=== PATIENT | female | born 1980 | race Caucasian/White ===

== ENCOUNTER 2021-07-17 10:01 | Outpatient (REF) | payer OTHER, SELFPAY ==
[2021-07-17 11:56] LABS: Alanine Aminotransferase 16 U/L (0-31); Albumin Level 4.3 g/dL (3.5-5.0); Alkaline Phosphatase 77 U/L (39-117); Anion Gap 11 (12-20); Aspartate Amino Transferase 15 U/L (5-31); Blood Urea Nitrogen 14 mg/dL (9-16); Calcium 9.4 mg/dL (8.4-10.2); Carbon Dioxide 25 mmol/L (22-29); Chloride 104 mmol/L (96-108); Estimated Glomerular Filt Rate 53; Glucose Random 75 mg/dL (60-115); Potassium 4.4 mmol/L (3.3-5.1); Sodium 136 mmol/L (135-145); Total Protein 6.8 g/dL (6.5-8.0)
== END 2021-07-17 10:02 | disposition home or self-care (01) ==
LOC: HO.HMGCLDS 10:01
PROVIDERS: Visit Provider Emergency Medicine
DX: F64.0 Transsexualism (principal)
CPT/HCPCS: 36415; 80053

== ENCOUNTER 2021-08-02 10:11 | Outpatient (REF) | payer OTHER, SELFPAY ==
[2021-08-07 00:42] LABS: Estradiol Ultra Sensitive 258 pg/mL
== END 2021-08-02 10:12 | disposition home or self-care (01) ==
LOC: HO.HMGCLDS 10:11
PROVIDERS: Visit Provider Emergency Medicine
DX: F60.0 Paranoid personality disorder (principal)
CPT/HCPCS: 36415; 82670

== ENCOUNTER 2021-08-30 10:35 | Outpatient (REF) | payer OTHER, SELFPAY ==
[2021-08-30 14:34] LABS: Alanine Aminotransferase 13 U/L (0-31); Albumin Level 4.6 g/dL (3.5-5.0); Alkaline Phosphatase 79 U/L (39-117); Anion Gap 15 (12-20); Aspartate Amino Transferase 19 U/L (5-31); Bilirubin Total 0.6 mg/dL (0.0-1.0); Blood Urea Nitrogen 12 mg/dL (9-16); Carbon Dioxide 24 mmol/L (22-29); Chloride 99 mmol/L (96-108); Cholesterol 188 mg/dL; Estimated Glomerular Filt Rate 50; Glucose Random 100 mg/dL (60-115); HDL Cholesterol 68 mg/dL; LDL Cholesterol Calculated 103 mg/dl; Potassium 4.8 mmol/L (3.3-5.1); Sodium 133 mmol/L (135-145); Total Protein 7.5 g/dL (6.5-8.0); Triglycerides 87 mg/dL
[2021-09-05 12:51] LABS: Testosterone, Total 111 ng/dL (2-45)
[2021-09-07 21:06] LABS: Estradiol Free 8.37 pg/mL; Estradiol, Ultrasensitive 625 pg/mL
== END 2021-08-30 10:36 | disposition home or self-care (01) ==
LOC: HO.HMGCLDS 10:35
PROVIDERS: Visit Provider Emergency Medicine
DX: F64.0 Transsexualism (principal)
CPT/HCPCS: 36415; 80053; 80061; 82670; 82681; 84403

== ENCOUNTER 2022-06-17 08:34 | Inpatient (IN) | payer OTHER, SELFPAY ==
[2022-06-17 08:37] VITALS: BP 154/87; PULSE 114; RESP 18; TEMP 36.5; O2SAT 99; BMI 19.8
--- NOTE | 2022-06-17 09:09 | ED_ITS ---
HPI - Psych General Chief Complaint: Psychiatric Symptoms Stated Complaint: Crisis Time Seen by Provider: 06/17/22 08:53 Source: patient Mode of arrival: ambulatory History of Present Illness HPI Narrative: 42-year-old [facility]. Per collateral patient's is afraid of patient and dropped her off at the program. Patient reporting her is delusional, and turing her family against her. Patient stating she does not feel safe with her / her son being with her . Patient states does not believe anything patient says, and is pushing her away from all of her family. Patient denies ETOH/drug use, SI or HI. Onset (ago): unknown Related Data Home Medications Medication Instructions Recorded Confirmed No Known Home Meds 06/17/22 06/17/22 Allergies Allergy/AdvReac Type Severity Reaction Status Date / Time No Known Allergies Allergy Verified 06/17/22 08:35 [No Known Allergies*] Review of Systems Review of Systems: Constitutional: No Fever, No Chills, No Fatigue, No Malaise ENT/Mouth: No Ear Pain, No Nasal Congestion, No sore throat Eyes: No Eye Pain, No Swelling, No Redness,No Vision Changes Cardiovascular: No Chest Pain, No SOB Respiratory: No Cough, No Dyspnea Gastrointestinal: No Nausea, No Vomiting, No Abdominal pain Musculoskeletal: No joint pain, No Myalgias, No Joint Swelling Skin: No Skin Lesions, No rash Neuro: No Weakness, No Headache Psych: + Anxiety/Panic, No Depression, No SI/HI/AH/VH, + Social Issues ROS mildly limited due to patient's acute mental status Yes all other systems are reviewed and are negative Constitutional: Constitutional: Reports as per HPI [facility] Past Medical History Attestation statement: The following information was validated with the patient. Social History Social History Smoked in Last 30 Days: Yes Use of substances other than those prescribed or required for medical reasons: No Advance Directives: No Advance Directives Information Provided: No Physical Exam Vital Signs: Vital Signs: Last Vital Signs Temp 97.9 F 06/17/22 11:48 Pulse 72 06/17/22 11:48 Resp 14 06/17/22 11:48 BP 137/74 06/17/22 11:48 Pulse Ox 98 06/17/22 11:48 O2 Del Method 06/17/22 11:48 BMI result Body Mass Index 19.8 Const: General: cooperative and anxious Orientation/consciousness: patient oriented x3 HEENT: Head: Yes normal to inspection and Yes atraumatic Ears: hearing grossly normal bilaterally General nose exam: Normal external nose present Face and sinus: Yes normal facial exam Throat: Yes posterior oropharynx normal Eyes: General: appearance normal, both eyes and all related structures EOM: EOMs intact bilaterally Neck: Neck: Yes normal visual inspection and Yes no meningeal signs Resp: Effort & Inspection: normal respiratory effort and no respiratory d istress Auscultation: clear to auscultation bilaterally, no crackles, no rales, no rhonchi and no wheezes Cardio: Rate: regular rate Heart sounds: S1 normal heart sound present and S2 normal heart sound present GI: Inspection: Yes normal to inspection Palpation (GI): Soft to palpation, nontender, no guarding and not rigid Skin: Rashes: no rashes Wounds: no wounds Neuro: General: patient oriented x3, tone normal, moves all extremities, no meningeal signs and CN's II-XI intact bilaterally Gait exam (Neuro): Normal gait present Extrem: General: Yes normal to inspection Psych: Speech and movement: Pressured speech present Affect: Animated affect present and Anxious affect present Thought process: Perseverating thought process present and Racing thoughts present Thought content: suicidality, no homicidality, Paranoid delusions present, delusions and No Depressive thoughts present Insight: Poor insight present (Psych) Judgement: Poor judgement present (Psych) Course Course Course Narrative: -[id number]-- labs unremarkable. Tox screen positive for THC Physician observation initiated at 11:30AM as patient needs more time to re- evaluated by crisis -1800-- ED care transferred to NATACHA Srivastava pending Crisis eval MDM - Psych MDM Narrative Medical decision making narrative: 42-year-old female presenting to ED from partial program for acute psychosis/ delusions. on exam vital signs stable, NAD, pressured speech, paranoid, obsessive, anxious, accusatory. Concern for acute psychosis. Rule out metabolic and infectious etiologies. Plan: Labs, tox screen, crisis consult Differential Diagnosis Differential diagnosis: Likely acute psychosis, drug-induced psychotic disorder, acute anxiety, substance abuse, mood disorder and schizoaffective disorder Medical Records Attestation: I reviewed the patient's medical records. Lab Data Attestation: I reviewed the patient's lab results. Result diagrams: 06/17/22 09:48 06/17/22 09:48 Labs: Lab Results 06/17/22 06/17/22 06/17/22 Range/Units 09:48 09:48 10:05 WBC 9.3 (4.8-10.8) X10*3/uL RBC 5.18 (4.20-5.50) X10*6/uL Hgb 15.5 (12.0-16.0) g/dl Hct 45.6 (37.0-47.0) % MCV 88.0 (80.0-98.0) fL MCH 29.9 (27.0-33.0) pg MCHC 34.0 (31.0-35.0) g/dl RDW 12.8 (11.0-16.0) % Plt Count 255 (160-400) X10*3/uL MPV 9.8 (9.4-12.3) fL Immature Gran % (Auto) Cancelled Neut % (Auto) Cancelled Lymph % (Auto) Cancelled [place] % (Auto) Cancelled Eos % (Auto) Cancelled Baso % (Auto) Cancelled Lymph # (Auto) Cancelled [place] # (Auto) Cancelled Eos # (Auto) Cancelled Baso # (Auto) Cancelled Abs Immat Gran (auto) Cancelled Absolute Neuts (auto) Cancelled Absolute Nucleated RBC 0.000 (0.0-0.012) X10*3/uL Nucleated RBC % (auto) 0.0 (0.0-0.2) /100WBC Neutrophils % (Manual) 71 (45-73) % Band Neutrophils % 0 L (3-5) % Lymphocytes % (Manual) 23 (20-40) % Monocytes % (Manual) 6 (2-11) % Abs Neuts (Manual) 6.6 (2.0-8.3) X10*3/uL Lymphocytes # (Manual) 2.1 (1.2-4.9) X10*3/uL Monocytes # (Manual) 0.6 (0.1-1.2) X10*3/uL Platelet Estimate NORMAL (NORMAL) Plt Morphology Comment NORMAL RBC Morphology NORMAL Sodium 138 (135-145) mmol/L Potassium 4.3 (3.3-5.1) mmol/L Chloride 103 (96-108) mmol/L Carbon Dioxide 25 (22-29) mmol/L Anion Gap 14 (12-20) BUN 9 (9-16) mg/dL Creatinine 1.13 (0.5-1.4) mg/dL Estim Creat Clear Calc 60.9 Estimated GFR 53 Random Glucose 127 H (60-115) mg/dL Calcium 9.5 (8.4-10.2) mg/dL Total Bilirubin 0.7 (0.0-1.0) mg/dL Direct Bilirubin 0.3 (0.0-0.5) mg/dL AST 20 (5-31) U/L ALT 17 (0-31) U/L Alkaline Phosphatase 73 (39-117) U/L Total Protein 6.8 (6.5-8.0) g/dL Albumin 4.5 (3.5-5.0) g/dL Urine Opiates Screen Not Detected (Not Detect) Urine Fentanyl Screen Not Detected (Not Detect) Ur Barbiturates Screen Not Detected (Not Detect) Ur Phencyclidine Scrn Not Detected (Not Detect) Ur Amphetamines Screen Not Detected (Not Detect) U Benzodiazepines Scrn Not Detected (Not Detect) Urine Cocaine Screen Not Detected (Not Detect) U Marijuana (THC) Screen POSITIVE H (Not Detect) Ethyl Alcohol < 10 mg/dL COVID-19 (RESHMA) (Negative) COVID-19 Clin Com 06/17/22 Range/Units 11:35 WBC (4.8-10.8) X10*3/uL RBC (4.20-5.50) X10*6/uL Hgb (12.0-16.0) g/dl Hct (37.0-47.0) % MCV (80.0-98.0) fL MCH (27.0-33.0) pg MCHC (31.0-35.0) g/dl RDW (11.0-16.0) % Plt Count (160-400) X10*3/uL MPV (9.4-12.3) fL Immature Gran % (Auto) Neut % (Auto) Lymph % (Auto) [place] % (Auto) Eos % (Auto) Baso % (Auto) Lymph # (Auto) [place] # (Auto) Eos # (Auto) Baso # (Auto) Abs Immat Gran (auto) Absolute Neuts (auto) Absolute Nucleated RBC (0.0-0.012) X10*3/uL Nucleated RBC % (auto) (0.0-0.2) /100WBC Neutrophils % (Manual) (45-73) % Band Neutrophils % (3-5) % Lymphocytes % (Manual) (20-40) % Monocytes % (Manual) (2-11) % Abs Neuts (Manual) (2.0-8.3) X10*3/uL Lymphocytes # (Manual) (1.2-4.9) X10*3/uL Monocytes # (Manual) (0.1-1.2) X10*3/uL Platelet Estimate (NORMAL) Plt Morphology Comment RBC Morphology Sodium (135-145) mmol/L Potassium (3.3-5.1) mmol/L Chloride (96-108) mmol/L Carbon Dioxide (22-29) mmol/L Anion Gap (12-20) BUN (9-16) mg/dL Creatinine (0.5-1.4) mg/dL Estim Creat Clear Calc Estimated GFR Random Glucose (60-115) mg/dL Calcium (8.4-10.2) mg/dL Total Bilirubin (0.0-1.0) mg/dL Direct Bilirubin (0.0-0.5) mg/dL AST (5-31) U/L ALT (0-31) U/L Alkaline Phosphatase (39-117) U/L Total Protein (6.5-8.0) g/dL Albumin (3.5-5.0) g/dL Urine Opiates Screen (Not Detect) Urine Fentanyl Screen (Not Detect) Ur Barbiturates Screen (Not Detect) Ur Phencyclidine Scrn (Not Detect) Ur Amphetamines Screen (Not Detect) U Benzodiazepines Scrn (Not Detect) Urine Cocaine Screen (Not Detect) U Marijuana (THC) Screen (Not Detect) Ethyl Alcohol mg/dL COVID-19 (RESHMA) Negative (Negative) COVID-19 Clin Com See Note Discharge Plan Discharge Clinical Impression: Acute psychosis Patient Disposition: Still a Patient Prescriptions: No Action No Known Home Meds Interventions: [place]-Suicide Risk Severity Scale Last Done: 06/17/22 11:06
[2022-06-17 09:40] VITALS: BP 141/67; PULSE 99; RESP 14; TEMP 36.3; O2SAT 98
[2022-06-17 09:53] LABS: Hematocrit 45.6 % (37.0-47.0); Hemoglobin 15.5 g/dl (12.0-16.0); Mean Corpuscular Hemoglobin 29.9 pg (27.0-33.0); Mean Platelet Volume 9.8 fL (9.4-12.3); Platelet Count 255 X10*3/uL (160-400); Red Blood Count 5.18 X10*6/uL (4.20-5.50); Red Cell Distribution Width 12.8 % (11.0-16.0)
[2022-06-17 09:54] LABS: WBC ABN SCTR FOR CBC 1; White Blood Count 9.3 X10*3/uL (4.8-10.8)
--- NOTE | 2022-06-17 10:14 | PC.NURSE ---
Lia called the pt's at this time, the pt does not want staff to communicate any treatment plan or any information with Lia at this time
[2022-06-17 10:24] LABS: Amphetamine Screen Urine Not Detected (Not Detect); Barbiturates, Urine Not Detected (Not Detect); Benzodiazepines Screen Urine Not Detected (Not Detect); Cannabinoid Screen Urine POSITIVE (Not Detect); Cocaine Screen Urine Not Detected (Not Detect); Fentanyl, urine Not Detected (Not Detect); Opiate Screen Urine Not Detected (Not Detect); Phencyclidine Screen Urine Not Detected (Not Detect)
[2022-06-17 10:25] LABS: Alanine Aminotransferase 17 U/L (0-31); Albumin Level 4.5 g/dL (3.5-5.0); Alkaline Phosphatase 73 U/L (39-117); Anion Gap 14 (12-20); Aspartate Amino Transferase 20 U/L (5-31); Bilirubin Total 0.7 mg/dL (0.0-1.0); Blood Urea Nitrogen 9 mg/dL (9-16); Calcium 9.5 mg/dL (8.4-10.2); Carbon Dioxide 25 mmol/L (22-29); Chloride 103 mmol/L (96-108); Creatinine Clr Calc Pharmacy 60.9; Estimated Glomerular Filt Rate 53; Ethanol < 10 mg/dL; Glucose Random 127 mg/dL (60-115); Potassium 4.3 mmol/L (3.3-5.1); Sodium 138 mmol/L (135-145); Total Protein 6.8 g/dL (6.5-8.0)
[2022-06-17 10:39] LABS: Band Neutrophils Percent 0 % (3-5); Lymphocytes Absolute Manual 2.1 X10*3/uL (1.2-4.9); Lymphocytes Percent Manual 23 % (20-40); Monocytes Absolute Manual 0.6 X10*3/uL (0.1-1.2); Monocytes Percent Manual 6 % (2-11); Neutrophils Absolute Manual 6.6 X10*3/uL (2.0-8.3); Neutrophils Percent Manual 71 % (45-73)
[2022-06-17 10:40] LABS: Platelet Estimate NORMAL (NORMAL); Platelet Morphology Comment NORMAL; RBC Morphology NORMAL
[2022-06-17 10:50] LABS: Bilirubin Direct 0.3 mg/dL (0.0-0.5)
[2022-06-17 11:48] VITALS: BP 137/74; PULSE 72; RESP 14; TEMP 36.6; O2SAT 98
[2022-06-17 12:01] LABS: COVID-19 Test Negative (Negative); IDNOW Serial# 16C4AD1C
--- NOTE | 2022-06-17 15:43 | MHC.CARE ---
[facility] unable to send a clinician to assess pt. CARE team will complete evaluation shortly.
[2022-06-17 21:08] VITALS: BP 142/81; PULSE 80; RESP 18; TEMP 36.7
[2022-06-17 22:27] VITALS: BMI 18.6
[2022-06-17] MEDS: Nicotine Polacrilex Lozenge 2 MG LOZENGE BUCCAL (23:16)
--- NOTE | 2022-06-17 23:25 | PC.ADMIT ---
Pt is a 42 years old transgender female who reports he is back to being a male. Pt was assigned male at and transitioned to female in 2016, however this past summer the Pt stopped taking estrogen to transition back. Pt is alert and oriented x3, VSS, Covid negative, tox screen positive for THC. Pt was brought to the hospital by his for increased delusions, agitation, and not eating or sleeping. Speech is pressured with normal tone, mood is elevated. Pt is restless with delusional preoccupation. Pt reports he wants to speak to somebody about his gender and also seek help in applying for disability. Pt has a history of one suicide attempt in 2007. Pt has no outpatient providers at this time. Admission orders obtained.
[2022-06-18] MEDS: Nicotine Polacrilex Lozenge 2 MG LOZENGE BUCCAL ×5 (06:50→18:32)
[2022-06-18 08:00] VITALS: BP 179/94; PULSE 125; RESP 16; TEMP 36.1; O2SAT 98
--- NOTE | 2022-06-18 09:00 | ECG_ITS ---
Test Reason : QTC CHECK Blood Pressure : / mmHG Vent. Rate : 069 BPM Atrial Rate : 069 BPM P-R Int : 110 ms QRS Dur : 080 ms QT Int : 358 ms P-R-T Axes : 064 079 062 degrees QTc Int : 383 ms Sinus rhythm with sinus arrhythmia with short LA Otherwise normal ECG No previous ECGs available Referred By: Lona Freeman Electronically Signed By:GIOVANNY VARMA MD
[2022-06-18 09:56] LABS: Estimated Average Glucose 103 mg/dL; Hemoglobin A1C 148.3786 umol/L; Hemoglobin A1c % 5.2 %
[2022-06-18 10:32] LABS: Cholesterol 156 mg/dL; Free T4 (Free Thyroxine) 0.99 ng/dL (0.71-1.85); HDL Cholesterol 57 mg/dL; LDL Cholesterol Calculated 85 mg/dl; Magnesium 2.1 mg/dL (1.6-2.6); Triglycerides 72 mg/dL
[2022-06-18 10:42] LABS: Vitamin B12 307 pg/mL (200-900)
[2022-06-18] MEDS: Acetaminophen 325 MG TABLET 650 MG PO (14:24)
[2022-06-18 18:00] VITALS: BP 133/86; PULSE 88; RESP 20; TEMP 36.9; O2SAT 96
--- NOTE | 2022-06-18 18:44 | HO.PSYADMNOT ---
HPI Date of Service: 06/18/22 Chief Complaint: Acute Psychosis Sources of Information: patient interviewed, chart reviewed and crisis/core team assessment reviewed HPI Subjective Notes: Conditional Voluntary Healthcare Proxy: No Guardianship: No Medical Problems Affecting Mental Status: No Narrative: 42 yo AMAB, Trans female for six years, with transition back to male this year as he believed his was having an affair. reports increase in lability, agitation, delusions regarding Kalia Cobain, poor appetite and sleep. Met with pt today who is alert, oriented, forthcoming. Reports he feels gaslighted by . She is upset that I am not making money and she wants me to get social security. Pt discussed his transitions and feeling unsafe in the work place as female, so he has continued to transition. Reports being rejected from over 40 positions due to gender. Discussed his concerns and needs which include assist in application for SSDI, referral to [facility], referral to primary care and endocrine MD's so he may have proper treatment. No current interest in attending [facility] or uniting with the community- too old for that . Wanting to leave me alone . Discussed feeling trapped in his relationship. Pt identifies his goals to be happy in my existance and to not be gaslighted. Considering a couples meeting. Pt declined psychopharmacology intervention at this time. Past Psychiatric History: IP: History of admission OP: Denies Medical Evaluation Reviewed: Yes [facility] Medical History (Updated 06/18/22 @ 18:59 by Lona Freeman, CHRIS) Bipolar disorder PTSD (post-traumatic stress disorder) Narrative: Denies Family History: Bipolar Disorder Social History: Born and raised in [place] One sister one brother Estranged from family ~11 years One son age 10 Substance History: cannabis Trauma History: affirms Diagnostics Vital Signs (24Hr): Vital Signs - 24 hr 06/17/22 21:08 06/18/22 08:00 Temperature 98.0 F 96.9 F Pulse Rate 80 125 H Respiratory Rate 18 16 Blood Pressure 142/81 H 179/94 H Pulse Oximetry 98 Oxygen Delivery Method Room Air Room Air BMI result Body Mass Index 18.6 Labs Results: 06/17/22 09:48 06/17/22 09:48 Labs: Laboratory Results - last 48 hr 06/17/22 06/17/22 06/17/22 09:48 09:48 10:05 WBC 9.3 RBC 5.18 Hgb 15.5 Hct 45.6 MCV 88.0 MCH 29.9 MCHC 34.0 RDW 12.8 Plt Count 255 MPV 9.8 Immature Gran % (Auto) Cancelled Neut % (Auto) Cancelled Lymph % (Auto) Cancelled [place] % (Auto) Cancelled Eos % (Auto) Cancelled Baso % (Auto) Cancelled Lymph # (Auto) Cancelled [place] # (Auto) Cancelled Eos # (Auto) Cancelled Baso # (Auto) Cancelled Abs Immat Gran (auto) Cancelled Absolute Neuts (auto) Cancelled Absolute Nucleated RBC 0.000 Nucleated RBC % (auto) 0.0 Neutrophils % (Manual) 71 Band Neutrophils % 0 L Lymphocytes % (Manual) 23 Monocytes % (Manual) 6 Abs Neuts (Manual) 6.6 Lymphocytes # (Manual) 2.1 Monocytes # (Manual) 0.6 Platelet Estimate NORMAL Plt Morphology Comment NORMAL RBC Morphology NORMAL Sodium 138 Potassium 4.3 Chloride 103 Carbon Dioxide 25 Anion Gap 14 BUN 9 Creatinine 1.13 Estim Creat Clear Calc 60.9 Estimated GFR 53 Random Glucose 127 H Estimat Average Glucose Hemoglobin A1c % Calcium 9.5 Magnesium Total Bilirubin 0.7 Direct Bilirubin 0.3 AST 20 ALT 17 Alkaline Phosphatase 73 Total Protein 6.8 Albumin 4.5 Triglycerides Cholesterol LDL Cholesterol, Calc HDL Cholesterol Vitamin B12 Folate TSH Free T4 Urine Opiates Screen Not Detected Urine Fentanyl Screen Not Detected Ur Barbiturates Screen Not Detected Ur Phencyclidine Scrn Not Detected Ur Amphetamines Screen Not Detected U Benzodiazepines Scrn Not Detected Urine Cocaine Screen Not Detected U Marijuana (THC) Screen POSITIVE H Ethyl Alcohol < 10 COVID-19 (RESHMA) COVID-19 Clin Com 06/17/22 06/18/22 06/18/22 11:35 09:27 09:27 WBC RBC Hgb Hct MCV MCH MCHC RDW Plt Count MPV Immature Gran % (Auto) Neut % (Auto) Lymph % (Auto) [place] % (Auto) Eos % (Auto) Baso % (Auto) Lymph # (Auto) [place] # (Auto) Eos # (Auto) Baso # (Auto) Abs Immat Gran (auto) Absolute Neuts (auto) Absolute Nucleated RBC Nucleated RBC % (auto) Neutrophils % (Manual) Band Neutrophils % Lymphocytes % (Manual) Monocytes % (Manual) Abs Neuts (Manual) Lymphocytes # (Manual) Monocytes # (Manual) Platelet Estimate Plt Morphology Comment RBC Morphology Sodium Potassium Chloride Carbon Dioxide Anion Gap BUN Creatinine Estim Creat Clear Calc Estimated GFR Random Glucose Estimat Average Glucose 103 Hemoglobin A1c % 5.2 Calcium Magnesium 2.1 Total Bilirubin Direct Bilirubin AST ALT Alkaline Phosphatase Total Protein Albumin Triglycerides 72 Cholesterol 156 LDL Cholesterol, Calc 85 HDL Cholesterol 57 Vitamin B12 Folate TSH 0.70 Free T4 0.99 Urine Opiates Screen Urine Fentanyl Screen Ur Barbiturates Screen Ur Phencyclidine Scrn Ur Amphetamines Screen U Benzodiazepines Scrn Urine Cocaine Screen U Marijuana (THC) Screen Ethyl Alcohol COVID-19 (RESHMA) Negative COVID-19 Clin Com See Note 06/18/22 09:27 WBC RBC Hgb Hct MCV MCH MCHC RDW Plt Count MPV Immature Gran % (Auto) Neut % (Auto) Lymph % (Auto) [place] % (Auto) Eos % (Auto) Baso % (Auto) Lymph # (Auto) Bureau # (Auto) Eos # (Auto) Baso # (Auto) Abs Immat Gran (auto) Absolute Neuts (auto) Absolute Nucleated RBC Nucleated RBC % (auto) Neutrophils % (Manual) Band Neutrophils % Lymphocytes % (Manual) Monocytes % (Manual) Abs Neuts (Manual) Lymphocytes # (Manual) Monocytes # (Manual) Platelet Estimate Plt Morphology Comment RBC Morphology Sodium Potassium Chloride Carbon Dioxide Anion Gap BUN Creatinine Estim Creat Clear Calc Estimated GFR Random Glucose Estimat Average Glucose Hemoglobin A1c % Calcium Magnesium Total Bilirubin Direct Bilirubin AST ALT Alkaline Phosphatase Total Protein Albumin Triglycerides Cholesterol LDL Cholesterol, Calc HDL Cholesterol Vitamin B12 307 Folate 11.0 TSH Free T4 Urine Opiates Screen Urine Fentanyl Screen Ur Barbiturates Screen Ur Phencyclidine Scrn Ur Amphetamines Screen U Benzodiazepines Scrn Urine Cocaine Screen U Marijuana (THC) Screen Ethyl Alcohol COVID-19 (RESHMA) COVID-19 Clin Com Meds/Allergies Meds Home Medications Medication Instructions Recorded Confirmed Type No Known Home Meds 06/17/22 06/17/22 History Allergies Allergies Allergy/AdvReac Type Severity Reaction Status Date / Time No Known Allergies Allergy Verified 06/17/22 08:35 [No Known Allergies*] Mental Status Exam Mental Status Exam Patient Appearance: Fatigued and Disheveled Patient Orientation: Person, Place, Time and Situation Level of Consciousness: Alert Patient Behavior: Talkative and Good Eye Contact Mood Description: Constricted and Apprehensive Affect Description: Constricted Patient Cognition Impaired: No Ability to Follow Directions: Good Speech Pattern: Spontaneous Speech Memory Description: Episodic Impaired Hallucinations: None Delusions: Not Present Perceptual Disturbances: Depersonalization and Derealization Thought Process: Racing Thought Content: positive for Racing Depressive Symptoms: Increased Anxiety, Difficulty Sleeping and Low Self Esteem Judgement: Fair Assessment & Plan Assessment & Plan (1) Bipolar disorder: Status: Acute Code(s): F31.9 - Bipolar disorder, unspecified (2) PTSD (post-traumatic stress disorder): Status: Acute Code(s): F43.10 - Post-traumatic stress disorder, unspecified Plan 42 yo male, having transitioned back from female. Family reports [place]lota, psychosis prior to admission. Pt is interviewed today and is alert, oriented, non suicidal, non homicidal, non manic, non psychotic. He describes a situaiton of needing to support his family and not being able to do this and is feeling gaslighted by his . He declines medication. We discussed observation of sx for a time, referral to endocrine and PCP and possibly a couples meeting to clairfy perceptions of symptoms. Plan: Pt declined medication intervention at this time Collateral contact Observe Patient educated on: medication risk/benefits and therapeutic strategies Informed Consent: understands and further education needed Reason for continued inpatient stay Substantial Risk for: rapid decompensation Statement Statement: I have reviewed the history and physical and performed a pertinent examination on my patient. No changes have occurred unless specified.
[2022-06-19] MEDS: Nicotine Polacrilex Lozenge 2 MG LOZENGE BUCCAL ×5 (01:08→12:02)
[2022-06-19 06:00] VITALS: BP 159/83; PULSE 92; RESP 18; TEMP 36.8; O2SAT 98
--- NOTE | 2022-06-19 10:50 | PM.PSYDC ---
DS: Providers Provider Date of Service: 06/19/22 Date of admission: 06/17/22 20:02 Date of discharge: 06/19/22 Primary care physician: Favian Physician Admitting clinician: Lona Freeman Attending physician on admission: Lyle Ramirez Attending physician on discharge: Lyle Ramirez Discharging clinician: Lona Freeman DS: Diagnosis Discharge Diagnosis (1) Bipolar disorder: Status: Acute (2) PTSD (post-traumatic stress disorder): Status: Acute DS: Medications Discharge Medications Home Medications: Home Medications Medication Instructions Recorded Confirmed No Known Home Meds 06/17/22 06/17/22 Mental Status Exam Mental Status Exam Patient Appearance: Fatigued and Disheveled Patient Orientation: Person, Place, Time and Situation Level of Consciousness: Alert Patient Behavior: Talkative and Good Eye Contact Mood Description: Constricted and Apprehensive Affect Description: Constricted Patient Cognition Impaired: No Ability to Follow Directions: Good Speech Pattern: Spontaneous Speech Memory Description: Episodic Impaired Hallucinations: None Delusions: Not Present Perceptual Disturbances: Depersonalization and Derealization Thought Process: Racing Thought Content: positive for Racing Depressive Symptoms: Increased Anxiety, Difficulty Sleeping and Low Self Esteem Judgement: Fair Data Data Completed and Pending Completed studies during hospitalization [Text1]: 06/17/22 06/17/22 06/17/22 09:48 09:48 10:05 WBC 9.3 RBC 5.18 Hgb 15.5 Hct 45.6 MCV 88.0 MCH 29.9 MCHC 34.0 RDW 12.8 Plt Count 255 MPV 9.8 Immature Gran % (Auto) Cancelled Neut % (Auto) Cancelled Lymph % (Auto) Cancelled Bonner % (Auto) Cancelled Eos % (Auto) Cancelled Baso % (Auto) Cancelled Lymph # (Auto) Cancelled Bonner # (Auto) Cancelled Eos # (Auto) Cancelled Baso # (Auto) Cancelled Abs Immat Gran (auto) Cancelled Absolute Neuts (auto) Cancelled Absolute Nucleated RBC 0.000 Nucleated RBC % (auto) 0.0 Neutrophils % (Manual) 71 Band Neutrophils % 0 L Lymphocytes % (Manual) 23 Monocytes % (Manual) 6 Abs Neuts (Manual) 6.6 Lymphocytes # (Manual) 2.1 Monocytes # (Manual) 0.6 Platelet Estimate NORMAL Plt Morphology Comment NORMAL RBC Morphology NORMAL Sodium 138 Potassium 4.3 Chloride 103 Carbon Dioxide 25 Anion Gap 14 BUN 9 Creatinine 1.13 Estim Creat Clear Calc 60.9 Estimated GFR 53 Random Glucose 127 H Estimat Average Glucose Hemoglobin A1c % Calcium 9.5 Magnesium Total Bilirubin 0.7 Direct Bilirubin 0.3 AST 20 ALT 17 Alkaline Phosphatase 73 Total Protein 6.8 Albumin 4.5 Triglycerides Cholesterol LDL Cholesterol, Calc HDL Cholesterol Vitamin B12 Folate TSH Free T4 Urine Opiates Screen Not Detected Urine Fentanyl Screen Not Detected Ur Barbiturates Screen Not Detected Ur Phencyclidine Scrn Not Detected Ur Amphetamines Screen Not Detected U Benzodiazepines Scrn Not Detected Urine Cocaine Screen Not Detected U Marijuana (THC) Screen POSITIVE H Ethyl Alcohol < 10 COVID-19 ([facility]) COVID-19 [employer] 06/17/22 06/18/22 06/18/22 11:35 09:27 09:27 WBC RBC Hgb Hct MCV MCH MCHC RDW Plt Count MPV Immature Gran % (Auto) Neut % (Auto) Lymph % (Auto) Bonner % (Auto) Eos % (Auto) Baso % (Auto) Lymph # (Auto) Bonner # (Auto) Eos # (Auto) Baso # (Auto) Abs Immat Gran (auto) Absolute Neuts (auto) Absolute Nucleated RBC Nucleated RBC % (auto) Neutrophils % (Manual) Band Neutrophils % Lymphocytes % (Manual) Monocytes % (Manual) Abs Neuts (Manual) Lymphocytes # (Manual) Monocytes # (Manual) Platelet Estimate Plt Morphology Comment RBC Morphology Sodium Potassium Chloride Carbon Dioxide Anion Gap BUN Creatinine Estim Creat Clear Calc Estimated GFR Random Glucose Estimat Average Glucose 103 Hemoglobin A1c % 5.2 Calcium Magnesium 2.1 Total Bilirubin Direct Bilirubin AST ALT Alkaline Phosphatase Total Protein Albumin Triglycerides 72 Cholesterol 156 LDL Cholesterol, Calc 85 HDL Cholesterol 57 Vitamin B12 Folate TSH 0.70 Free T4 0.99 Urine Opiates Screen Urine Fentanyl Screen Ur Barbiturates Screen Ur Phencyclidine Scrn Ur Amphetamines Screen U Benzodiazepines Scrn Urine Cocaine Screen U Marijuana (THC) Screen Ethyl Alcohol COVID-19 ([facility]HMA) Negative COVID-19 [employer] [facility] See Note 06/18/22 09:27 WBC RBC Hgb Hct MCV MCH MCHC RDW Plt Count MPV Immature Gran % (Auto) Neut % (Auto) Lymph % (Auto) Bonner % (Auto) Eos % (Auto) Baso % (Auto) Lymph # (Auto) Bonner # (Auto) Eos # (Auto) Baso # (Auto) Abs Immat Gran (auto) Absolute Neuts (auto) Absolute Nucleated RBC Nucleated RBC % (auto) Neutrophils % (Manual) Band Neutrophils % Lymphocytes % (Manual) Monocytes % (Manual) Abs Neuts (Manual) Lymphocytes # (Manual) Monocytes # (Manual) Platelet Estimate Plt Morphology Comment RBC Morphology Sodium Potassium Chloride Carbon Dioxide Anion Gap BUN Creatinine Estim Creat Clear Calc Estimated GFR Random Glucose Estimat Average Glucose Hemoglobin A1c % Calcium Magnesium Total Bilirubin Direct Bilirubin AST ALT Alkaline Phosphatase Total Protein Albumin Triglycerides Cholesterol LDL Cholesterol, Calc HDL Cholesterol Vitamin B12 307 Folate 11.0 TSH Free T4 Urine Opiates Screen Urine Fentanyl Screen Ur Barbiturates Screen Ur Phencyclidine Scrn Ur Amphetamines Screen U Benzodiazepines Scrn Urine Cocaine Screen U Marijuana (THC) Screen Ethyl Alcohol COVID-19 ([facility]) COVID-19 Clin Com DS: Summary Hospital Course Hospital Course: Admission to adult psychiatry for situational crisis and exacerbation of PTSD and Bipolar Disorder. Pt asked that no medications be used. They were discharged home when they were able to clarify and begin the process of resolution of the conflict which precipitated admission with their . Time spent discussing smoking cessation with patient: 3 to 10 minutes Status at Discharge Functional status at discharge: independent ambulation Overall status at discharge: patient is back to baseline Time Spent with Patient Time attestation: Total time spent providing and/or coordinating discharge services: 25 Time spent: Less than 30 minutes Discharge Plan Discharge Anticipated Discharge Date/Time: 06/19/22 14:30 Patient Disposition: Home, Self-Care Discharge Diagnosis: PTSD Bipolar Disorder Referrals: [facility] Endocrinology [Other] - 3 Weeks (Referral was made on: 06/19/2022 [facility] will contact the patient with an appointment upon discharge from [facility]. Per [facility], obtaining an appointment may take up to 3 weeks.) [facility]-Intake Appointment [Other] - 1 Day (Patient will follow-up with [facility] on Thursday, Jun, for information on appointments.) [facility] [Other] (Walk in if needed) Discharge Medications: No Action No Known Home Meds Discharge Orders: Discharge Order (Routine); Ordered 06/19/22 Ordered By: Lona Freeman Diet: Advance to usual diet Activity on Discharge: As tolerated Stand Alone Forms: Patient Portal Discharge page, Community Support Care Plan Goals: Maintain mood and safe behaviors Practice coping skills Follow up with out patient referrals You have refused medication interventions at this time Health Concerns: Stable mood and behaviors Plan of Treatment: Follow up with out patient referral resources Assessment: non psychotic non suicidal non homicidal non manic Discharge Date/Time: 06/19/22 14:11
== END 2022-06-19 14:11 | disposition home or self-care (01) | DRG 753 ==
LOC: HO.ED 13:17 → HO.PM5 20:21
PROVIDERS: Physician Assistant; Admitting Provider Clinical Nurse Specialist Psychiatric/Mental Health, Adult; Emergency Provider Emergency Medicine; Visit Provider Clinical Nurse Specialist Psychiatric/Mental Health, Adult
DX: F31.9 Bipolar disorder, unspecified (principal); F17.210 Nicotine dependence, cigarettes, uncomplicated; F43.10 Post-traumatic stress disorder, unspecified; Z71.6 Tobacco abuse counseling; Z20.822 Contact with and (suspected) exposure to COVID-19
CPT/HCPCS: 36415; 80048; 80061; 80076; 80307; 82077; 82607; 82746; 83036; 83735; 84439; 84443; 85007; 85027; 87635; 93005; 99285

== ENCOUNTER 2023-08-07 08:27 | Outpatient (REF) | payer OTHER, SELFPAY ==
[2023-08-07 12:06] LABS: Anion Gap 11 (12-20); Blood Urea Nitrogen 13 mg/dL (9-16); Calcium 9.4 mg/dL (8.4-10.2); Carbon Dioxide 27 mmol/L (22-29); Chloride 105 mmol/L (96-108); Cholesterol 158 mg/dL (<200); Estimated Glomerular Filt Rate 53; Glucose Random 87 mg/dL (60-115); HDL Cholesterol 48 mg/dL (>40); LDL Cholesterol Calculated 90 mg/dL (<100); Potassium 4.7 mmol/L (3.3-5.1); Sodium 138 mmol/L (135-145); Triglycerides 103 mg/dL (<150)
[2023-08-07 12:45] LABS: Estimated Average Glucose 103 mg/dL; Hemoglobin A1c % 5.2 % (<6.0)
[2023-08-12 15:08] LABS: Testosterone, Total 542 ng/dL (2-45)
[2023-08-13 23:54] LABS: Estradiol Free 1.78 pg/mL; Estradiol, Ultrasensitive 80 pg/mL
== END 2023-08-07 08:28 | disposition home or self-care (01) ==
LOC: HO.HMGCLDS 08:27
PROVIDERS: Visit Provider Nurse Practitioner Women's Health
DX: F64.0 Transsexualism (principal); Z13.220 Encounter for screening for lipoid disorders; Z13.1 Encounter for screening for diabetes mellitus
CPT/HCPCS: 36415; 80048; 80061; 82670; 82681; 83036; 84403

== ENCOUNTER 2025-03-29 13:05 | Outpatient (REF) | payer OTHER, SELFPAY ==
[2025-03-29 16:36] LABS: Hemoglobin A1C 134.3341 umol/L; Total Hemoglobin (HGBA1C) 3741.9790 umol/L
[2025-03-29 16:41] LABS: Alanine Aminotransferase 42 U/L (0-31); Albumin Level 4.2 g/dL (3.5-5.0); Alkaline Phosphatase 89 U/L (39-117); Anion Gap 13 (12-20); Aspartate Amino Transferase 44 U/L (5-31); Blood Urea Nitrogen 15 mg/dL (9-16); Calcium 9.3 mg/dL (8.4-10.2); Carbon Dioxide 26 mmol/L (22-29); Chloride 106 mmol/L (96-108); Cholesterol 154 mg/dL (<200); Estimated Glomerular Filt Rate 51; HDL Cholesterol 50 mg/dL (>40); Potassium 3.6 mmol/L (3.3-5.1); Sodium 141 mmol/L (135-145); Total Protein 6.4 g/dL (6.5-8.0); Triglycerides 108 mg/dL (<150)
== END 2025-03-29 13:06 | disposition home or self-care (01) ==
LOC: HO.HMGCLDS 13:05
PROVIDERS: Visit Provider Advanced Practice Midwife
DX: F64.9 Gender identity disorder, unspecified (principal)
CPT/HCPCS: 36415; 80053; 80061; 83036

== ENCOUNTER 2025-04-18 09:59 | Outpatient (REF) | payer OTHER, SELFPAY | END 2025-04-18 10:00 | disposition home or self-care (01) | LOC: HO.HMGCLDS 09:59 | PROVIDERS: Visit Provider Nurse Practitioner Women's Health | DX: F84.9 Pervasive developmental disorder, unspecified (principal) | CPT/HCPCS: 36415; 82672; 84403 ==